=== PATIENT | female | born 1985 | race Caucasian/White ===

== ENCOUNTER 2017-08-15 14:57 | Emergency (ER) | payer BC ==
[~2017-08-15] VITALS: Ht 167.6 cm; Wt 59.0 kg
[2017-08-15] MEDS ORDERED: OXYCODONE-ACET1 EAC5 ORAL (15:29)
[2017-08-15] MEDS ORDERED: GABAPENTIN100 MG ORAL (15:30)
[2017-08-15] MEDS ORDERED: LEVOTHYROXINE200 MCG IV (15:30)
[2017-08-15 15:32] LABS: BASOPHILS % (AUTO) 0.7 % (0.0-2.0); HEMATOCRIT 37.9 % (37.0-47.0); HEMOGLOBIN 13.9 G/DL (12.0-16.0); LYMPHOCYTES % (AUTO) 30.6 % (20.0-45.0); MEAN CORPUSCULAR VOLUME 98 FL (80-99); MONOCYTES % (AUTO) 3.9 % (1.0-10.0); NEUTROPHILS % (AUTO) 63.7 % (45.0-75.0); PLATELET COUNT 283 K/UL (150-450); RED BLOOD COUNT 3.87 M/UL (4.20-5.40); RED CELL DISTRIBUTION WIDTH 12.3 % (11.6-14.8)
[2017-08-15 15:52] LABS: ANION GAP 12 mmol/L (5-15); BLOOD UREA NITROGEN 19 mg/dL (7-18); CALCIUM 9.5 MG/DL (8.5-10.1); CARBON DIOXIDE 24 MMOL/L (21-32); CHLORIDE 101 MMOL/L (98-107); CREATININE 1.1 MG/DL (0.55-1.30); POTASSIUM 3.9 MMOL/L (3.5-5.1); SODIUM 136 MMOL/L (136-145)
[2017-08-15] MEDS ORDERED: Ketorolac 30mg Inj IV ONE (16:00)
[2017-08-15 16:04] LABS: ALANINE AMINOTRANSFERASE 34 U/L (12-78); ALBUMIN 3.9 G/DL (3.4-5.0); ALBUMIN/GLOBULIN RATIO 0.9 (1.0-2.7); ALKALINE PHOSPHATASE 56 U/L (46-116); ASPARTATE AMINO TRANSFERASE 21 U/L (15-37); CKMB < 0.5 NG/ML (0.0-3.6); CREATINE KINASE 31 U/L (26-308)
--- NOTE | 2017-08-15 16:10 | Emergency Room Report ---
History of Present Illness General Chief Complaint: Syncope Source: Patient, EMS Present Illness HPI The patient states that for the past 3 days she has had a sore throat and has been unable to drink anything. She states she has swollen glands. She feels terrible. She said she's had fever and chills. She states that she fainted twice today. She denies cough or congestion. She denies abdominal pain. She denies nausea or vomiting. She has no other complaints. Allergies: Coded Allergies: ASPIRIN (Verified Allergy, Mild, 08/15/17) Patient History Past Medical History: none Past Surgical History: other - Breast Augmentation Social History: Reports: drug use - THC; Denies: smoking, alcohol use Reviewed Nursing Documentation: PMH: Agreed; PSxH: Agreed Nursing Documentation-PMH Past Medical History: No Stated History Review of Systems All Other Systems: negative except mentioned in HPI Physical Exam Vital Signs Date Time Temp Pulse Resp B/P (MAP) Pulse Ox O2 Delivery O2 Flow Rate FiO2 08/15/17 15:06 98.4 104 16 109/73 98 Room Air 98.4 Sp02 EP Interpretation: reviewed, normal General Appearance: no apparent distress, alert, GCS 15, non-toxic Head: normocephalic, atraumatic Eyes: bilateral eye normal inspection, bilateral eye PERRL ENT: hearing grossly normal, no angioedema, normal voice, TMs + canals normal, uvula midline, pharyngeal erythema Neck: full range of motion, supple, supple/symm/no masses Respiratory: chest non-tender, lungs clear, normal breath sounds, no respiratory distress, no retraction, no accessory muscle use, speaking full sentences Cardiovascular #1: regular rate, rhythm, no edema Gastrointestinal: normal bowel sounds, non tender, soft, non-distended, no guarding, no rebound Rectal: deferred Musculoskeletal: back normal, gait/station normal, normal range of motion, non- tender Neurologic: alert, oriented x3, responsive, motor strength/tone normal, sensory intact, speech normal Psychiatric: judgement/insight normal, memory normal, mood/affect normal, no suicidal/homicidal ideation Skin: normal color, no rash, warm/dry, well hydrated Lymphatic: other - Anterior cervical MEGHAN Medical Decision Making Diagnostic Impression: Primary Impression: Pharyngitis ER Course This patient has a clinical presentation consistent with pharyngitis. Physical exam is consistent with a viral etiology. There is no evidence of peritonsillar abscess or deep neck abscess. There is no airway edema. Overall , this patient had a very benign examination. The patient only needs supportive care. The patient is instructed to get [id number] lozenges. I will also give the patient Motrin as a pain medication and anti-inflammatory. The patient was given return precautions and followup instructions. Laboratory Tests Test 08/15/17 15:05 08/15/17 16:00 White Blood Count 4.0 K/UL (4.8-10.8) L Red Blood Count 3.87 M/UL (4.20-5.40) L Hemoglobin 13.9 G/DL (12.0-16.0) Hematocrit 37.9 % (37.0-47.0) Mean Corpuscular Volume 98 FL (80-99) Mean Corpuscular Hemoglobin 35.9 PG (27.0-31.0) H Mean Corpuscular Hemoglobin Concent 36.7 G/DL (32.0-36.0) H Red Cell Distribution Width 12.3 % (11.6-14.8) Platelet Count 283 K/UL (150-450) Mean Platelet Volume 6.1 FL (6.5-10.1) L Neutrophils (%) (Auto) 63.7 % (45.0-75.0) Lymphocytes (%) (Auto) 30.6 % (20.0-45.0) Monocytes (%) (Auto) 3.9 % (1.0-10.0) Eosinophils (%) (Auto) 1.0 % (0.0-3.0) Basophils (%) (Auto) 0.7 % (0.0-2.0) Sodium Level 136 MMOL/L (136-145) Potassium Level 3.9 MMOL/L (3.5-5.1) Chloride Level 101 MMOL/L (98-107) Carbon Dioxide Level 24 MMOL/L (21-32) Anion Gap 12 mmol/L (5-15) Blood Urea Nitrogen 19 mg/dL (7-18) H Creatinine 1.1 MG/DL (0.55-1.30) Estimate Glomerular Filtration Rate 57.6 mL/min (>60) Glucose Level 121 MG/DL (74-106) H Calcium Level 9.5 MG/DL (8.5-10.1) Total Bilirubin 1.0 MG/DL (0.2-1.0) Aspartate Amino Transferase (AST) 21 U/L (15-37) Alanine Aminotransferase (ALT) 34 U/L (12-78) Alkaline Phosphatase 56 U/L (46-116) Total Creatine Kinase 31 U/L (26-308) Creatine Kinase MB < 0.5 NG/ML (0.0-3.6) Creatine Kinase MB Relative Index 1.6 Troponin I 0.000 ng/mL (0.000-0.056) Total Protein 8.3 G/DL (6.4-8.2) H Albumin 3.9 G/DL (3.4-5.0) Globulin 4.4 g/dL Albumin/Globulin Ratio 0.9 (1.0-2.7) L Urine HCG, Qualitative Negative (NEGATIVE) Urine Opiates Screen Negative (NEGATIVE) Urine Barbiturates Screen Negative (NEGATIVE) Phencyclidine (PCP) Screen Negative (NEGATIVE) Urine Amphetamines Screen Negative (NEGATIVE) Urine Benzodiazepines Screen Negative (NEGATIVE) Urine Cocaine Screen Negative (NEGATIVE) Urine Marijuana (THC) Screen Positive (NEGATIVE) H EKG Diagnostic Results Rate: normal Rhythm: NSR ST Segments: no acute changes Rhythm Strip Diag. Results EP Interpretation: yes Rate: 80's Rhythm: NSR, no PVC's, no ectopy Last Vital Signs Date Time Temp Pulse Resp B/P (MAP) Pulse Ox O2 Delivery O2 Flow Rate FiO2 08/15/17 15:06 98.4 104 16 109/73 98 Room Air 98.4 Status: improved Disposition: HOME, SELF-CARE Condition: Improved ROMA QUILES D.O. Aug 15, 2017 16:10
[2017-08-15 16:23] VITALS: BP 101/60
--- NOTE | 2017-08-15 16:52 | Diagnostic Imaging Report ---
Indication: Shortness of breath Technique: One view of the chest Comparison: none Findings: Lungs and pleural spaces are clear. Heart size is normal Impression: No acute process
[2017-08-15 18:19] VITALS: BP 110/55
[2017-08-15] MEDS ORDERED: IBUPROFEN800 MG ORAL (19:03)
[2017-08-15] MEDS ORDERED: ACETAMINOPHEN500 M3 ORAL (19:03)
[2017-08-15] MEDS ORDERED: LIDOCAINE VISC100 ML ORAL (19:03)
[2017-08-15 19:38] VITALS: BP 100/59
[2017-08-15 19:45] VITALS: BP 100/59
--- NOTE | 2017-08-17 17:44 | Cardiology Report ---
APPROVED REPORT EKG Measurement Heart [id number] Normal sinus rhythm Normal ECG
== END 2017-08-15 19:45 | disposition home or self-care (01) ==
LOC: EDBD 14:57 → EMR 18:06
DX: J02.9 Acute pharyngitis, unspecified (principal); Z88.6 Allergy status to analgesic agent
CPT/HCPCS: 36415; 71045; 80053; 80307; 81025; 82550; 82553; 84484; 85025; 86710; 93005; 96374; 96375; 99284; J1885